=== PATIENT | female | born 1970 | race Caucasian/White ===

== ENCOUNTER 2017-02-07 11:42 | Emergency (ER) | payer MEDICAID, OTHER ==
[~2017-02-07] VITALS: Ht 154.9 cm; Wt 79.1 kg
[2017-02-07] MEDS ORDERED: hydrOXyzine 50MG TABLET PO ONE (12:30)
[2017-02-07] MEDS ORDERED: CETI-222 PO (12:33)
[2017-02-07] MEDS ORDERED: LORA10CA PO (12:33)
[2017-02-07 12:57] LABS: ASPARTATE AMINO TRANSFERASE 15 U/L (15-37); BLOOD UREA NITROGEN 13 mg/dL (7-18)
[2017-02-07 14:32] VITALS: BP 125/70
== END 2017-02-07 14:34 | disposition home or self-care (01) ==
LOC: ED 13:32
DX: L50.9 Urticaria, unspecified (principal); I95.9 Hypotension, unspecified
CPT/HCPCS: 36415; 80053; 84436; 84443; 85025; 99284